=== PATIENT | female | born 1935 | race Caucasian/White ===

== ENCOUNTER 2017-03-15 09:13 | Emergency (ER) | payer OTHER ==
[~2017-03-15] VITALS: Ht 167.6 cm; Wt 59.0 kg
[~2017-03-15 09:13] MED LIST: AMLO5TAB2 PO; ASPI81CH43 PO; ATEN50TA PO; ATOR20TA50 PO; DOCU100T15 PO; DONE5TAB28 PO; LISI-275 PO; MEMA1TAB2 PO; PANT1INJ3 PO; ROSU5TAB5 PO; TEMA30CA PO
[2017-03-15 10:16] LABS: Basophils # (auto) 0.1 uL; Basophils % (auto) 0.9 % (0.0-2.0); Eosinophils # (auto) 0.2 uL; Eosinophils % (auto) 2.8 % (0.0-7.0); Hematocrit 30.9 % (36.0-46.0); Hemoglobin 10.1 g/dL (12.2-16.2); Lymphocytes # (auto) 1.2 uL; Mean Corpuscular Hemoglobin 28.5 pg (28.0-32.0); Mean Corpuscular Hgb Conc. 32.6 g/dL (32.0-36.0); Mean Corpuscular Volume 87.6 fL (80.0-100.0); Monocytes # (auto) 0.7 uL; Monocytes % (auto) 9.9 % (0.0-12.0); Neutrophils # (auto) 4.8 uL; Neutrophils % (auto) 69.4 % (37.0-80.0); Nucleated Red Blood Cells % 0.1 %; Platelet Count (auto) 226 10^3/uL (140-450); Red Cell Distribution Width 15.5 % (11.8-14.3)
[2017-03-15 10:31] LABS: Albumin 3.3 g/dL (3.4-5.0); BUN/Creatinine Ratio 10.3; Bilirubin, Total 0.7 mg/dL (0.2-1.0); Calcium 9.5 mg/dL (8.5-10.1); Potassium 4.9 mmol/L (3.5-5.1); Total Protein 6.8 g/dL (6.4-8.2)
[2017-03-15] MEDS ORDERED: HALOPERIDOL LACTATE 5 MG/ML INJ VIAL IM ONE ×2 (11:00→14:30)
[2017-03-15] MEDS ORDERED: LORazepam 2MG/ML-1ML VIAL IV ONE (11:00)
[2017-03-15] MEDS ORDERED: SODIUM CHLORIDE 0.9% 500 ML IVB ONE (11:00)
[2017-03-15] MEDS ORDERED: LORazepam 2MG/ML-1ML VIAL ONE (12:02)
[2017-03-15] MEDS ORDERED: TETANUS-DIPTH-ACEL PERTUSSIS 0.5ML SYRG IM ONE (15:15)
[2017-03-15 15:59] LABS: Urine Bilirubin Negative (Negative); Urine Blood Negative /uL (Negative); Urine Color Yellow (Yellow); Urine Glucose Normal (Normal); Urine Ketone Negative (Negative); Urine Nitrite Negative (Negative); Urine RBC <1 /hpf (0 - 4); Urine Urobilinogen Normal (Negative)
[2017-03-15 17:45] VITALS: BP 117/70
== END 2017-03-15 17:01 | disposition home or self-care (01) ==
LOC: ER 09:13 → EDBD 09:13 → ER 17:01
DX: S00.03XA Contusion of scalp, initial encounter (principal); S60.812A Abrasion of left wrist, initial encounter; G30.9 Alzheimer's disease, unspecified; F02.80 Dementia in other diseases classified elsewhere, unspecified severity, without behavioral disturbance, psychotic disturbance, mood disturbance, and anxiety; I10 Essential (primary) hypertension; F02.81 Dementia in other diseases classified elsewhere, unspecified severity, with behavioral disturbance; G30.1 Alzheimer's disease with late onset; K21.9 Gastro-esophageal reflux disease without esophagitis; F41.9 Anxiety disorder, unspecified; W19.XXXA Unspecified fall, initial encounter; Y93.89 Activity, other specified; Y92.89 Other specified places as the place of occurrence of the external cause; Y99.8 Other external cause status
CPT/HCPCS: 36415; 51702; 70450; 71010; 80053; 81001; 83735; 84443; 85025; 90471; 90715; 96361; 96372; 96374; 99285; J1630; J2060; A4565

== ENCOUNTER 2017-04-19 02:37 | Emergency (ER) | payer OTHER ==
[~2017-04-19] VITALS: Ht 165.1 cm; Wt 49.9 kg
[2017-04-19 10:30] VITALS: BP 116/57
[2017-04-19 10:30] LABS: Hematocrit 30.7 % (36.0-46.0); Hemoglobin 10.1 g/dL (12.2-16.2); Mean Corpuscular Hemoglobin 27.8 pg (28.0-32.0); Mean Corpuscular Hgb Conc. 32.9 g/dL (32.0-36.0); Mean Corpuscular Volume 84.5 fL (80.0-100.0); Mean Platelet Volume 7.6 fL (6.9-10.8); Platelet Count (auto) 194 10^3/uL (140-450); Red Cell Distribution Width 16.2 % (11.8-14.3); White Blood Cell 6.4 10^3/uL (4.4-10.8)
[2017-04-19 10:34] LABS: Metamyelocytes % 0; Myelocytes % 0; Promyelocytes % 0; Reactive Lymphocytes 0
[2017-04-19 10:58] LABS: Albumin 3.1 g/dL (3.4-5.0); BUN/Creatinine Ratio 27.2; Bilirubin, Total 0.4 mg/dL (0.2-1.0); Calcium 9.3 mg/dL (8.5-10.1); Potassium 4.5 mmol/L (3.5-5.1); Total Protein 6.5 g/dL (6.4-8.2)
[2017-04-19 13:04] LABS: Platelet Estimate Adequate
== END 2017-04-19 14:05 | disposition home or self-care (01) ==
LOC: EDBD 02:37 → ER 02:37
DX: S80.212A Abrasion, left knee, initial encounter (principal); R41.82 Altered mental status, unspecified; G30.9 Alzheimer's disease, unspecified; F02.80 Dementia in other diseases classified elsewhere, unspecified severity, without behavioral disturbance, psychotic disturbance, mood disturbance, and anxiety; E78.5 Hyperlipidemia, unspecified; I10 Essential (primary) hypertension; W18.30XA Fall on same level, unspecified, initial encounter; Y93.89 Activity, other specified; Y92.89 Other specified places as the place of occurrence of the external cause; Y99.8 Other external cause status; Z79.899 Other long term (current) drug therapy; Z88.6 Allergy status to analgesic agent
CPT/HCPCS: 36415; 70450; 70486; 73562; 80053; 85007; 85027